=== PATIENT | female | born 1985 | race Caucasian/White ===

== ENCOUNTER 2016-09-10 15:08 | Emergency (ER) | payer SELFPAY ==
[2016-09-10 15:12] VITALS: BP 137/78; PULSE 108; RESP 20; TEMP 98.7; O2SAT 95
[2016-09-10] MEDS ORDERED: SODIUM CHLOR 0.9% 1000 ML INJ 1,000 ML IV ONE (15:45)
[2016-09-10 16:02] LABS: AUTOMATED NEUTROPHIL # 4.3 TH/MM3 (1.8-7.7); BASOPHIL # 0.1 TH/MM3 (0-0.2); BASOPHIL % 0.8 % (0.0-2.0); EOSINOPHIL # 0.2 TH/MM3 (0-0.4); EOSINOPHIL % 2.3 % (0.0-4.0); HEMATOCRIT 40.5 % (35.0-46.0); HEMO FLAGS DIFF FINAL; LYMPH % 26.2 % (9.0-44.0); LYMPHOCYTE # 1.7 TH/MM3 (1.0-4.8); MEAN CELL VOLUME 87.9 FL (80.0-100.0); MEAN CORPUSCULAR HEMOGLOBIN 28.9 PG (27.0-34.0); MEAN CORPUSCULAR HGB CONC 32.9 % (32.0-36.0); MONO % 6.1 % (0.0-8.0); NEUT % 64.6 % (16.0-70.0); PLATELET COUNT 243 TH/MM3 (150-450); RED CELL DISTRIBUTION WIDTH 14.5 % (11.6-17.2); WHITE BLOOD COUNT 6.6 TH/MM3 (4.0-11.0)
[2016-09-10 16:21] LABS: ALT (GPT) 14 U/L (10-53); ANION GAP 11 MEQ/L (5-15); AST (GOT) 8 U/L (15-37); BICARBONATE 24.5 MEQ/L (21.0-32.0); BLOOD UREA NITROGEN 12 MG/DL (7-18); CHLORIDE 106 MEQ/L (98-107); GLOMERULAR FILTRATION RATE 77 ML/MIN (>89); POTASSIUM 3.6 MEQ/L (3.5-5.1); SODIUM (NA) 141 MEQ/L (136-145)
[2016-09-10 16:31] LABS: ALKALINE PHOSPHATASE 51 U/L (45-117); BETA HCG QUANT LESS THAN 1 MIU/ML (0-5); TOTAL BILIRUBIN ADULT 0.6 MG/DL (0.2-1.0)
--- NOTE | 2016-09-10 16:52 | PD ---
HPI Chief Complaint: Cardiac Complaint Time Seen by Provider: 15:23 Travel History International Travel<30 days: No Contact w/Intl Traveler<30days: No Traveled to known affect area: No History of Present Illness HPI So 30-year-old woman who presents to the emergency department complaining of dizziness and lightheadedness ongoing for the past couple weeks. She also has had an increase in palpitations. She said trouble palpitations in the past and has had workup including Holter monitors and echoes which have showed an incomplete right bundle, but no other significant arrhythmias or other abnormality. She's also been having irregular menstrual cycles for the past couple months is unusual for her. She started her menstrual cycle now and she is states it's heavier than it typically is. She also has had some easy bruising, and generally feels anxious. Symptoms been worsening, and she feels like they're not similar to her typical anxiety or palpitations symptoms she has so she came to the emergency department. History Past Medical History Narrative Medical Anxiety LMP: 09/10/16 Social History Alcohol Use: Yes (OCC) Tobacco Use: No Allergies-Medications (Allergen,Severity, Reaction): Coded Allergies: No Known Allergies (Unverified , 06/21/14) Reported Meds & Prescriptions Reported Meds & Active Scripts Active No Active Prescriptions or Reported Medications Review of Systems Except as stated in HPI: all other systems reviewed are Neg Physical Exam Narrative GENERAL: Well-appearing 30-year-old woman, no acute distress. SKIN: Warm and dry. HEAD: Atraumatic. Normocephalic. CARDIOVASCULAR: Regular rate and rhythm. No murmur appreciated. RESPIRATORY: No accessory muscle use. Clear to auscultation. Breath sounds equal bilaterally. GASTROINTESTINAL: Abdomen soft, non-tender, nondistended. Hepatic and splenic margins not palpable. MUSCULOSKELETAL: No obvious deformities. No edema. NEUROLOGICAL: Awake and alert. No obvious cranial nerve deficits. Motor grossly within normal limits. Normal speech. PSYCHIATRIC: Appropriate mood and affect; insight and judgment normal. Data Data Last Documented VS Vital Signs Date Time Temp Pulse Resp B/P Pulse Ox O2 Delivery O2 Flow Rate FiO2 09/10/16 15:12 98.7 108 20 137/78 95 Room Air Orders Complete Blood Count With Diff (09/10/16 15:32) Comprehensive Metabolic Panel (09/10/16 15:32) Thyroid Stimulating Hormone (09/10/16 15:32) Iv Access Insert/Monitor (09/10/16 15:32) Beta Hcg (Quant/Titer) (09/10/16 15:32) Sodium Chlor 0.9% 1000 Ml Inj (Ns 1000 M (09/10/16 15:45) Labs Laboratory Tests Test 09/10/16 15:35 White Blood Count 6.6 TH/MM3 Red Blood Count 4.60 MIL/MM3 Hemoglobin 13.3 GM/DL Hematocrit 40.5 % Mean Corpuscular Volume 87.9 FL Mean Corpuscular Hemoglobin 28.9 PG Mean Corpuscular Hemoglobin 32.9 % Concent Red Cell Distribution Width 14.5 % Platelet Count 243 TH/MM3 Mean Platelet Volume 8.5 FL Neutrophils (%) (Auto) 64.6 % Lymphocytes (%) (Auto) 26.2 % Monocytes (%) (Auto) 6.1 % Eosinophils (%) (Auto) 2.3 % Basophils (%) (Auto) 0.8 % Neutrophils # (Auto) 4.3 TH/MM3 Lymphocytes # (Auto) 1.7 TH/MM3 Monocytes # (Auto) 0.4 TH/MM3 Eosinophils # (Auto) 0.2 TH/MM3 Basophils # (Auto) 0.1 TH/MM3 CBC Comment DIFF FINAL Differential Comment Sodium Level 141 MEQ/L Potassium Level 3.6 MEQ/L Chloride Level 106 MEQ/L Carbon Dioxide Level 24.5 MEQ/L Anion Gap 11 MEQ/L Blood Urea Nitrogen 12 MG/DL Creatinine 0.86 MG/DL Estimat Glomerular Filtration 77 ML/MIN Rate Random Glucose 88 MG/DL Calcium Level 9.0 MG/DL Total Bilirubin 0.6 MG/DL Aspartate Amino Transf 8 U/L (AST/SGOT) Alanine Aminotransferase 14 U/L (ALT/SGPT) Alkaline Phosphatase 51 U/L Total Protein 7.5 GM/DL Albumin 4.2 GM/DL Thyroid Stimulating Hormone 1.460 uIU/ML 3rd Gen Human Chorionic Gonadotropin, LESS THAN 1 Quant MIU/ML [facility] Medical Decision Making Medical Screen Exam Complete: Yes Emergency Medical Condition: Yes Differential Diagnosis LABS: CBC is unremarkable. CMP is unremarkable. HCG is negative TSH is normal My review of EKG: Sinus tachycardia 107, normal axis, normal intervals, no acute ischemia. Narrative Course Medical decision making 30-year-old with palpitations and anxiety symptoms, worsening over the past several weeks. Initial workups unremarkable. Thyroid test is normal. Electrolytes are normal. Recommend reassurance and outpatient follow-up. Diagnosis Primary Impression: Palpitations Additional Impression: Anxiety Additional Instructions: Drink plenty fluids stay well-hydrated. Follow-up with your primary doctor in the next 2-4 days. Med/Other Pt SpecificInfo: No Change to Meds Scripts No Active Prescriptions or Reported Meds Disposition: 01 DISCHARGE HOME Condition: Stable Harjit Lester MD Sep 10, 2016 16:52
--- NOTE | 2016-09-11 10:38 | EKG ---
Date Performed: 09/10/2016 Time Performed: 15:22:41 PTAGE: 30 years EKG: SINUS TACHYCARDIA rSr pattern V1,V2 Compared to prior tracing no significant change PREVIOUS TRACING : 04/20/2005 09.29 DOCTOR: Yassine Barnhart Interpretating Date/Time 09/11/2016 10:36:07
== END 2016-09-10 17:43 | disposition home or self-care (01) ==
LOC: NEPC 15:08
DX: R00.2 Palpitations (principal); F41.9 Anxiety disorder, unspecified
CPT/HCPCS: 80053; 84443; 84702; 85025; 93005; 96360; 99285; J7030

== ENCOUNTER 2017-07-16 17:26 | Emergency (ER) | payer OTHER ==
[~2017-07-16] VITALS: Ht 160 cm; Wt 55.0 kg
[2017-07-16 17:37] VITALS: BP 143/67; PULSE 104; RESP 18; TEMP 98.3; O2SAT 98
--- NOTE | 2017-07-16 17:56 | PD ---
HPI Chief Complaint: Dizziness Time Seen by Provider: 17:42 Travel History International Travel<30 days: No Contact w/Intl Traveler<30days: No Traveled to known affect area: No History of Present Illness HPI patient states that since august of this year she has had spells of dizziness, tremors, lightheadedness and "like i'm going to pass out feeling". sometimes occurs while at work, other times while at rest at home, no pattern is noted. all denies pmhx denies pshx: knee lig repair PFSH Past Medical History Anxiety: Yes (self dignosed ) Diminished Hearing: No ?: Not LMP: 07/16/17 Past Surgical History Section: Yes Other Surgery: Yes (RIGHT KNEE) Social History Alcohol Use: Yes (OCC) Tobacco Use: No Substance Use: No Allergies-Medications (Allergen,Severity, Reaction): Coded Allergies: No Known Allergies (Unverified Adverse Reaction, Unknown, 07/16/17) Reported Meds & Prescriptions Reported Meds & Active Scripts Active No Active Prescriptions or Reported Medications Review of Systems Except as stated in HPI: all other systems reviewed are Neg General / Constitutional: No: Fever Eyes: No: Visual changes HENT: Positive: Lightheadedness Cardiovascular: No: Chest Pain or Discomfort Respiratory: No: Shortness of Breath Gastrointestinal: No: Abdominal Pain Genitourinary: No: Dysuria Musculoskeletal: No: Pain Skin: No Rash Neurologic: Positive: Dizziness, Tremor Psychiatric: No: Depression Endocrine: No: Polydipsia Hematologic/Lymphatic: No: Easy Bruising Physical Exam Narrative GENERAL: SKIN: Warm and dry. HEAD: Atraumatic. Normocephalic. EYES: Pupils equal and round. No scleral icterus. No injection or drainage. ENT: No nasal bleeding or discharge. Mucous membranes pink and moist. NECK: Trachea midline. No JVD. CARDIOVASCULAR: Regular rate and rhythm. RESPIRATORY: No accessory muscle use. Clear to auscultation. Breath sounds equal bilaterally. GASTROINTESTINAL: Abdomen soft, non-tender, nondistended. MUSCULOSKELETAL: Extremities without clubbing, cyanosis, or edema. No obvious deformities. NEUROLOGICAL: Awake and alert. No obvious cranial nerve deficits. Motor grossly within normal limits. Five out of 5 muscle strength in the arms and legs. Normal speech. PSYCHIATRIC: Appropriate mood and affect; insight and judgment normal. Data Data Last Documented VS Orders Orders Electrocardiogram (07/16/17 17:57) Complete Blood Count With Diff (07/16/17 17:57) Comprehensive Metabolic Panel (07/16/17 17:57) Beta Hcg (Quant/Titer) (07/16/17 17:57) Thyroid Stimulating Hormone (07/16/17 17:57) Iv Access Insert/Monitor (07/16/17 17:57) Ecg Monitoring (07/16/17 17:57) Oximetry (07/16/17 17:57) Orthostatic Vital Signs (07/16/17 17:57) Thyroid Autoantibodies (07/16/17 17:57) Thyroid Stimulating Immunoglob (07/16/17 17:57) Sodium Chlor 0.9% 1000 Ml Inj (Ns 1000 M (07/16/17 19:30) Ct Brain W/O Iv Contrast(Rout) (07/16/17 19:29) Ed Discharge Order (07/16/17 20:23) Labs Laboratory Tests Test 07/16/17 18:00 07/16/17 20:25 White Blood Count 6.9 TH/MM3 Red Blood Count 3.95 MIL/MM3 Hemoglobin 12.6 GM/DL Hematocrit 36.3 % Mean Corpuscular Volume 92.0 FL Mean Corpuscular Hemoglobin 31.9 PG Mean Corpuscular Hemoglobin Concent 34.7 % Red Cell Distribution Width 13.4 % Platelet Count 240 TH/MM3 Mean Platelet Volume 8.0 FL Neutrophils (%) (Auto) 59.2 % Lymphocytes (%) (Auto) 29.6 % Monocytes (%) (Auto) 7.3 % Eosinophils (%) (Auto) 3.1 % Basophils (%) (Auto) 0.8 % Neutrophils # (Auto) 4.1 TH/MM3 Lymphocytes # (Auto) 2.0 TH/MM3 Monocytes # (Auto) 0.5 TH/MM3 Eosinophils # (Auto) 0.2 TH/MM3 Basophils # (Auto) 0.1 TH/MM3 CBC Comment AUTO DIFF Differential Total Cells Counted 100 Neutrophils % (Manual) 67 % Lymphocytes % 22 % Monocytes % 4 % Eosinophils % 6 % Neutrophils # (Manual) 4.7 TH/MM3 Metamyelocytes 1 % Differential Comment FINAL DIFF MANUAL Platelet Estimate NORMAL Platelet Morphology Comment NORMAL Blood Urea Nitrogen 12 MG/DL Creatinine 0.85 MG/DL Random Glucose 92 MG/DL Total Protein 7.6 GM/DL Albumin 4.1 GM/DL Calcium Level 9.0 MG/DL Alkaline Phosphatase 50 U/L Aspartate Amino Transf (AST/SGOT) 13 U/L Alanine Aminotransferase (ALT/SGPT) 14 U/L Total Bilirubin 0.6 MG/DL Sodium Level 138 MEQ/L Potassium Level 3.5 MEQ/L Chloride Level 104 MEQ/L Carbon Dioxide Level 24.3 MEQ/L Anion Gap 10 MEQ/L Estimat Glomerular Filtration Rate 78 ML/MIN Thyroid Stimulating Hormone 3rd Gen 1.590 uIU/ML Human Chorionic Gonadotropin, Quant LESS THAN 1 MIU/ML Thyroid Stimulating Immunoglobulin LESS THAN 89.0 Thyroglobulin Antibody LESS THAN 1 IU/mL Thyroid Peroxidase Antibodies LESS THAN 1 IU/mL MDM Medical Decision Making Medical Screen Exam Complete: Yes Emergency Medical Condition: Yes Medical Record Reviewed: Yes Interpretation(s) nsr , 95, rsr prime pattern c/w irbbb Differential Diagnosis anemia v dehydration v thyroid disorder v arrythmia Narrative Course no anemia/or arrhythmia noted...no screening evidence of thyroid disorder but will order full panel to eval for subclinical thyroiditis. also found to have mild orthostasis for which she was given ivf Diagnosis Primary Impression: palpitations Additional Impression: near syncope Scripts No Active Prescriptions or Reported Meds Disposition: 01 DISCHARGE HOME Condition: Stable Louis Coffey MD Jul 16, 2017 17:56
[2017-07-16 18:24] LABS: AUTOMATED NEUTROPHIL # 4.1 TH/MM3 (1.8-7.7); BASOPHIL # 0.1 TH/MM3 (0-0.2); BASOPHIL % 0.8 % (0.0-2.0); EOSINOPHIL # 0.2 TH/MM3 (0-0.4); EOSINOPHIL % 3.1 % (0.0-4.0); HEMATOCRIT 36.3 % (35.0-46.0); LYMPH % 29.6 % (9.0-44.0); MEAN CORPUSCULAR HEMOGLOBIN 31.9 PG (27.0-34.0); MEAN CORPUSCULAR HGB CONC 34.7 % (32.0-36.0); MONO % 7.3 % (0.0-8.0); NEUT % 59.2 % (16.0-70.0); PLATELET COUNT 240 TH/MM3 (150-450); RED BLOOD COUNT 3.95 MIL/MM3 (4.00-5.30); RED CELL DISTRIBUTION WIDTH 13.4 % (11.6-17.2); WHITE BLOOD COUNT 6.9 TH/MM3 (4.0-11.0)
[2017-07-16 18:34] LABS: HEMO FLAGS AUTO DIFF
[2017-07-16 18:39] LABS: ANION GAP 10 MEQ/L (5-15); AST (GOT) 13 U/L (15-37); BICARBONATE 24.3 MEQ/L (21.0-32.0); BLOOD UREA NITROGEN 12 MG/DL (7-18); CHLORIDE 104 MEQ/L (98-107); GLOMERULAR FILTRATION RATE 78 ML/MIN (>89); POTASSIUM 3.5 MEQ/L (3.5-5.1); SODIUM (NA) 138 MEQ/L (136-145)
[2017-07-16 18:50] LABS: ALKALINE PHOSPHATASE 50 U/L (45-117); ALT (GPT) 14 U/L (10-53); BETA HCG QUANT LESS THAN 1 MIU/ML (0-5); TOTAL BILIRUBIN ADULT 0.6 MG/DL (0.2-1.0)
[2017-07-16 18:58] VITALS: BP_SYST 127; BP_SYST 143; BP_SYST 144; BP_DIAS 67; BP_DIAS 72; BP_DIAS 80; RESP 18; RESP 20
[2017-07-16 19:16] LABS: EOSINOPHILS 6 % (0-4); METAMYELOCYTES 1 % (0-1); NEUTROPHIL # MANUAL DIFF 4.7 TH/MM3 (1.8-7.7); POLYS (SEG NEUTROPHILS) 67 % (16-70); WBC DIFF SAMPLE 100
[2017-07-16 19:17] LABS: PLATELET ESTIMATE SMEAR NORMAL (NORMAL); PLATELET MORPHOLOGY NORMAL (NORMAL); SCAN/DIFF FINAL DIFF MANUAL
[2017-07-16] MEDS ORDERED: SODIUM CHLOR 0.9% 1000 ML INJ 1,000 ML IV ONE (19:30)
--- NOTE | 2017-07-16 20:59 | RADRPT ---
EXAM DATE/TIME: 07/16/2017 19:29 [facility] COMPARISON: No previous studies available for comparison. INDICATIONS : Near syncopal episode. RADIATION DOSE: 56.35 CTDIvol (mGy) MEDICAL HISTORY : None SURGICAL HISTORY : None. ENCOUNTER: Initial ACUITY: 1 day PAIN SCALE: 0/10 LOCATION: cranial TECHNIQUE: Multiple contiguous axial images were obtained of the head. Using automated exposure control and adj ustment of the mA and/or kV according to patient size, radiation dose was kept as low as reasonably a chievable to obtain optimal diagnostic quality images. DICOM format image data is available electro nically for review and comparison. FINDINGS: CEREBRUM: The ventricles are normal for age. No evidence of midline shift, mass lesion, hemorrhage or acute in farction. No extra-axial fluid collections are seen. POSTERIOR FOSSA: The cerebellum and brainstem are intact. The 4th ventricle is midline. The cerebellopontine angle i s unremarkable. EXTRACRANIAL: The visualized portion of the orbits is intact. SKULL: The calvaria is intact. No evidence of skull fracture. CONCLUSION: Negative noncontrast CT brain. Fredi Kelley MD on July 16, 2017 at 20:47 Board Certified Radiologist. This report was verified electronically.
--- NOTE | 2017-07-17 09:46 | EKG ---
Date Performed: 07/16/2017 Time Performed: 17:39:49 PTAGE: 31 years EKG: Sinus rhythm POSSIBLE LEFT ATRIAL ENLARGEMENT POSSIBLE RIGHT VENTRICULAR CONDUCTION DELAY BORDERLINE ECG PREVIOUS TRACING : 09/10/2016 15.22 DOCTOR: Harjit Esparza Interpretating Date/Time 07/17/2017 09:44:43
[2017-07-20 03:50] LABS: THYROGLOB ABS LESS THAN 1 IU/mL (< OR = 1)
== END 2017-07-16 20:53 | disposition home or self-care (01) ==
LOC: NEPD 17:26
DX: R00.2 Palpitations (principal); R55 Syncope and collapse; R42 Dizziness and giddiness; F41.9 Anxiety disorder, unspecified; R25.1 Tremor, unspecified
CPT/HCPCS: 70450; 80053; 84443; 84445; 84702; 85007; 85027; 86376; 86800; 93005; 99285; J7030